=== PATIENT | male | born 1960 | race Caucasian/White ===

== ENCOUNTER 2018-02-25 02:55 | Inpatient (IN) | payer OTHER ==
[2018-02-25] MEDS ORDERED: NS 0.9% 1000 ML* 2,000 ML IV ONE (03:12)
[2018-02-25] MEDS ORDERED: Metoclopramide IV* 5 MG/ML 2 ML VIAL IV SLOW PU ONE (03:12)
[2018-02-25] MEDS ORDERED: Morphine INJ* 2 MG/ML 1 ML SYRINGE (TWO MG - NEW SYRINGE VERSION) IV ONE ×2 (03:13→05:12)
[2018-02-25 03:36] LABS: ABS Basophils 0 10^3/ul (0-0.2); ABS Eosinophils 0 10^3/ul (0-0.6); ABS Lymphocytes 0.9 10^3/ul (1.0-4.8); ABS Monocytes 1.1 10^3/ul (0-0.8); ABS Neutrophils 14.4 10^3/ul (1.5-7.7); ABS Nucleated RBC 0 10^3/ul; Eosinophil % 0 % (0-6); Hematocrit 45 % (42-52); Hemoglobin 15.2 g/dl (14.0-18.0); Lymphocyte % 5.5 % (25-47); Mean Corpuscular HGB Conc 34 g/dl (31-36); Mean Corpuscular Hemoglobin 29 pg (27-31); Mean Corpuscular Volume 87 fL (80-94); Mean Platelet Volume 7.5 um3 (7.4-10.4); Nucleated Red Blood Cells % 0; Platelet Count 231 10^3/ul (150-450); Red Blood Count 5.16 10^6/ul (4.00-5.40); Red Cell Distribution Width 14 % (10.5-15); White Blood Count 16.4 10^3/ul (3.5-10.8)
[2018-02-25 03:42] LABS: INR 1.4 (0.77-1.02)
--- NOTE | 2018-02-25 03:42 | ED ---
Abdominal Pain/Male - HPI Summary HPI Summary: A 57 y/o male accompanied by his presents to the ED c/o suprapubic abdominal pain/cramps reaching 8/10 in severity. Additionally c/o N/V/D. As per triage, "Pt stated that on Saturday evening, he started to have cramps in his stomach with N/V/D. Pt stated that yesterday he was in bed for most of the day Pt [place]. Pt stated that it hurts worse on right side than left side". According to the patient, he started experiencing severe abdominal cramps in the suprapubic region since last night after the [facility] fair. Additionally he felt dehydrated and "hot". He did drink some water, but that began on the onset of abdominal cramps. He noted that his diarrhea has subsided slightly, but has appetite changes, denies fever. No prior surgeries. Throughout the day he laid in bed with cramps to the point where it became unbearable. - History of Current Complaint Chief Complaint: EDNauseaVomitDiarrh Stated Complaint: ABD PAIN Time Seen by Provider: 02/25/18 03:04 Hx Obtained From: Patient Onset/Duration: Sudden Onset, Lasting Hours Timing: Constant Severity Initially: Severe Severity Currently: Severe Pain Intensity: 8 Pain Scale Used: 0-10 Numeric Location: Suprapubic Radiates: No Character: Cramping Aggravating Factor(s): Nothing Alleviating Factor(s): Nothing Associated Signs And Symptoms: Positive: Decreased Appetite, Nausea, Vomiting, Diarrhea - Allergies/Home Medications Allergies/Adverse Reactions: Allergies Allergy/AdvReac Type Severity Reaction Status Date / Time No Known Allergies Allergy Verified 02/25/18 03:00 PMH/Surg Hx/FS Hx/Imm Hx Endocrine/Hematology History: Denies: Hx Diabetes Cardiovascular History: Denies: Hx Hypertension Respiratory History: Denies: Hx Asthma - Surgical History Surgery Procedure, Year, and Place: As per patient, no prior surgeries noted. Infectious Disease History: No Infectious Disease History: Denies: Traveled Outside the [place] in Last 30 Days - Family History Known Family History: Positive: Other - PA Negative: Hypertension, Diabetes - Social History Alcohol Use: Occasionally Substance Use Type: Reports: None Smoking Status (MU): Never Smoked Tobacco Review of Systems Negative: Fever Positive: Abdominal Pain, Vomiting, Diarrhea, Nausea, Other - POSITIVE: Appetite changes All Other Systems Reviewed And Are Negative: Yes Physical Exam - Summary Physical Exam Summary: VITAL SIGNS: Reviewed. GENERAL: Patient is a well-developed and nourished male who is lying comfortable in the stretcher. Patient is not in any acute respiratory distress. HEAD AND FACE: No signs of trauma. No ecchymosis, hematomas or skull depressions. No sinus tenderness. EYES: PERRLA, EOMI x 2, No injected conjunctiva, no nystagmus. EARS: Hearing grossly intact. Ear canals and tympanic membranes are within normal limits. MOUTH: Oropharynx within normal limits. NECK: Supple, trachea is midline, no adenopathy, no JVD, no carotid bruit, no c- spine tenderness, neck with full ROM. CHEST: Symmetric, no tenderness at palpation LUNGS: Clear to auscultation bilaterally. No wheezing or crackles. CVS: Regular rate and rhythm, S1 and S2 present, no murmurs or gallops appreciated. ABDOMEN: Soft, RLQ tenderness. Abdomen is distended. No rebound, flank guarding , and no masses palpated. Bowel sounds are normal. EXTREMITIES: FROM in all major joints, no edema, no cyanosis or clubbing. NEURO: Alert and oriented x 3. No acute neurological deficits. Speech is normal and follows commands. SKIN: Dry and warm Triage Information Reviewed: Yes Vital Signs On Initial Exam: Initial Vitals Temp Pulse Resp BP Pulse Ox 98.3 F 129 20 131/76 98 02/25/18 02:56 02/25/18 02:56 02/25/18 02:56 02/25/18 02:56 02/25/18 02:56 Vital Signs Reviewed: Yes Diagnostics - Vital Signs Vital Signs Temp Pulse Resp BP Pulse Ox 02/25/18 02:56 98.3 F 129 20 131/76 98 - Laboratory Lab Results: Lab Results 02/25/18 Range/Units 03:16 WBC 16.4 H (3.5-10.8) 10^3/ul RBC 5.16 (4.00-5.40) 10^6/ul Hgb 15.2 (14.0-18.0) g/dl Hct 45 (42-52) % MCV 87 (80-94) fL MCH 29 (27-31) pg MCHC 34 (31-36) g/dl RDW 14 (10.5-15) % Plt Count 231 (150-450) 10^3/ul MPV 7.5 (7.4-10.4) um3 Neut % (Auto) 87.5 H (38-83) % Lymph % (Auto) 5.5 L (25-47) % [place] % (Auto) 6.7 (0-7) % Eos % (Auto) 0 (0-6) % Baso % (Auto) 0.3 (0-2) % Absolute Neuts (auto) 14.4 H (1.5-7.7) 10^3/ul Absolute Lymphs (auto) 0.9 L (1.0-4.8) 10^3/ul Absolute Monos (auto) 1.1 H (0-0.8) 10^3/ul Absolute Eos (auto) 0 (0-0.6) 10^3/ul Absolute Basos (auto) 0 (0-0.2) 10^3/ul Absolute Nucleated RBC 0 10^3/ul Nucleated RBC % 0 Result Diagrams: 02/25/18 03:16 02/25/18 03:16 Lab Statement: Any lab studies that have been ordered have been reviewed, and results considered in the medical decision making process. - CT CT A/P CT Interpretation Completed By: Radiologist - Moderate thickening of the ascending colon with surrounding inflammatory changes, perforation, and trace free air in the right abdomen and adjacent to the ascending colon (series 2 image 45) Findings represent inflammation, or infection, however, underlying mass cannot be completely excluded direct visualization after treatment is recommended. ED PHYSICIAN REVIEWED THIS RADIOLOGY REPORT. Abdominal Pain Fem Course/Dx - Course Course Of Treatment: A 57 y/o male accompanied by his presents to the ED c/ o suprapubic abdominal pain/cramps reaching 8/10 in severity. Additionally c/o N /V/D. A CT A/P revealed moderate thickening of the ascending colon with surrounding inflammatory changes, perforation, and trace free air in the right abdomen and adjacent to the ascending colon (series 2 image 45) Findings represent inflammation, or infection, however, underlying mass cannot be completely excluded direct visualization after treatment is recommended. In the ED course, the patient recieved Levaquin, Flagyl, Omnipaque, Morphine, Reglan and IV fluids. Patient care was discussed with Dr. Pressley who will consult with patient. After consulting with patient, Dr. Pressley accepted the patient for admission. Patient will be admitted with a diagnosis of colitis with perforation. Patient is agreeable with this plan. - Diagnoses Provider Diagnoses: Colitis - Provider Notifications Discussed Care Of Patient With: Mecca Pressley Time Discussed With Above Provider: 05:10 Instructed by Provider To: Other - Will consult with patient. At 0629, Dr. Pressley accepted for admission. Discharge - Sign-Out/Discharge Documenting (check all that apply): Patient Departure - ADMIT - Discharge Plan Condition: Stable Disposition: ADMITTED TO [facility] Referrals: Juan Antonio Calderón MD [Primary Care Provider] - - Attestation Statements Document Initiated by Scribe: Yes Documenting Scribe: Jevon Rose Provider For Whom Scribe is Documenting (Include Credential): Johnathon Larose Attestation: Jevon Soares, scribed for Jose Manuel Galindo on 02/25/18 at 0628.
[2018-02-25 03:51] LABS: EGFR Non-African American 63.5 (>60)
[2018-02-25] MEDS ORDERED: Iohexol 300* (CONTRAST) 10 ML SDV IV ONE (03:58)
[2018-02-25 05:03] LABS: Urine Appearance Clear; Urine Blood 1+ (Negative); Urine Color Straw; Urine Ketones Trace (Negative); Urine Protein Negative (Negative); Urine Red Blood Cell Trace(0-2/hpf) (Absent); Urine Specific Gravity 1.041 (1.010-1.030); Urine Urobilinogen Negative (Negative); Urine White Blood Cell Absent (Absent)
[2018-02-25] MEDS ORDERED: metroNIDAZOLE IV 500 MG/100ML* 500 MG/100 ML BAG IVPB ONE (05:03)
--- NOTE | 2018-02-25 05:03 | RAD ---
EXAM: CT Abdomen and Pelvis With Intravenous Contrast CLINICAL HISTORY: 57 years old, male; Pain; Abdominal pain; Localized; Right lower quadrant (rlq); Additional info: Abd pain TECHNIQUE: Axial computed tomography images of the abdomen and pelvis with intravenous contrast. All CT scans at this facility use at least one of these dose optimization techniques: automated exposure control; mA and/or kV adjustment per patient size (includes targeted exams where dose is matched to clinical indication); or iterative reconstruction. Coronal and sagittal reformatted images were created and reviewed. CONTRAST: 131 mL of OMNI administered intravenously. COMPARISON: No relevant prior studies available. FINDINGS: Lung bases: Bibasilar atelectasis. ABDOMEN: Liver: Diffuse fatty infiltration of liver. Gallbladder and bile ducts: Unremarkable. No calcified stones. No ductal dilation. Pancreas: Unremarkable. No mass. No ductal dilation. Spleen: Unremarkable. No splenomegaly. Adrenals: Unremarkable. No mass. Kidneys and ureters: Unremarkable. No solid mass. No hydronephrosis. Stomach and bowel: Moderate thickening of the ascending colon with surrounding inflammatory changes, perforation, and trace free air in the right abdomen and adjacent to the ascending colon (series 2 image 45) Findings represent inflammation, or infection, however, underlying mass cannot be completely excluded direct visualization after treatment is recommended. Nondistention versus mild thickening of the sigmoid colon and descending colon. Few scattered colonic diverticula. Transverse colon is unremarkable. Mild thickening and prominence of the fluid filled left small bowel loop may represent mild inflammation or ileus. PELVIS: Appendix: No findings to suggest acute appendicitis. Bladder: Mild hyperdensity in the urinary bladder may represent contrast. Reproductive: Prostate calcifications. ABDOMEN and PELVIS: Intraperitoneal space: Small free fluid or free air. Bones/joints: No acute fracture. No dislocation. Soft tissues: Unremarkable. Vasculature: Unremarkable. No abdominal aortic aneurysm. Lymph nodes: Multiple subcentimeter left para-aortic lymph nodes. These are not pathologically enlarged by CT criteria. Subcentimeter mesenteric lymph nodes, these are not pathologically enlarged by CT criteria. IMPRESSION: Moderate thickening of the ascending colon with surrounding inflammatory changes, perforation, and trace free air in the right abdomen and adjacent to the ascending colon (series 2 image 45) Findings represent inflammation, or infection, however, underlying mass cannot be completely excluded direct visualization after treatment is recommended. Critical findings: Findings discussed with Dr. STEVEN Winn date of interpretation on 02/25/18 at 4 AM.
[2018-02-25] MEDS ORDERED: Levofloxacin 500 MG IVPREMIX(* 500 MG/100 ML BAG IVPB ONE (05:04)
[2018-02-25] MEDS ORDERED: NS 0.9% 1000 ML* 1,000 ML IV ONE (05:04)
--- NOTE | 2018-02-25 06:51 | HP ---
H&P (Free Text) History and Physical: Surgery H & P Asked by Dr. Benito to evaluate a pt. with abdominal pain and a CT suggestive of microperforation of ascending colon. Mr. Cummings is a 57 y.o. male who reports he first felt some vague abdominal discomfort 2 days ago. He attributed this discomfort to dehydration, but when it worsened and persisted through yesterday , he decided to come to the ER. He describes the pain as "pinching". Yesterday he began to have some diarrhea and he vomited. He denies dysuria or fever. He did have some chills yesterday. He is not hungry. He had a similar pain a month or so ago, but it resolved. PMHx: denies Meds: none NKDA SH: neg. tob., occ EtOH, neg. IVDA ROS: neg. FH: denies PE: general: somewhat overweight male in NAD Vital Signs 02/25/18 02/25/18 02/25/18 02:56 04:36 04:50 Temperature 98.3 F Pulse Rate 129 Respiratory 20 16 36 Rate Blood Pressure 131/76 151/98 (mmHg) O2 Sat by Pulse 98 Oximetry 02/25/18 02/25/18 02/25/18 04:51 05:00 05:20 Temperature Pulse Rate Respiratory 28 36 32 Rate Blood Pressure 137/79 (mmHg) O2 Sat by Pulse Oximetry 02/25/18 02/25/18 02/25/18 05:39 05:50 06:00 Temperature Pulse Rate Respiratory 16 33 30 Rate Blood Pressure 145/92 (mmHg) O2 Sat by Pulse Oximetry HEENT: anicteric sclerae, dry oral mucosa, neg. cervical adenopathy lungs: clear to ausc. heart: reg., tachy abd: distended, diminished BS, tympanic in upper abd., soft, tender in RUQ; right mid-abd., RLQ; no guarding or rebound. Neg. CVAT ext: neg. cyanosis, edema Laboratory Results - last 24 hr 02/25/18 02/25/18 02/25/18 03:16 03:16 03:16 WBC 16.4 H RBC 5.16 Hgb 15.2 Hct 45 MCV 87 MCH 29 MCHC 34 RDW 14 Plt Count 231 MPV 7.5 Neut % (Auto) 87.5 H Lymph % (Auto) 5.5 L Davidson % (Auto) 6.7 Eos % (Auto) 0 Baso % (Auto) 0.3 Absolute Neuts (auto) 14.4 H Absolute Lymphs (auto) 0.9 L Absolute Monos (auto) 1.1 H Absolute Eos (auto) 0 Absolute Basos (auto) 0 Absolute Nucleated RBC 0 Nucleated RBC % 0 INR (Anticoag Therapy) 1.40 H APTT 33.6 Sodium 135 Potassium 3.6 Chloride 101 Carbon Dioxide 25 Anion Gap 9 BUN 13 Creatinine 1.19 H Est GFR ( Amer) 76.8 Est GFR (Non-Af Amer) 63.5 BUN/Creatinine Ratio 10.9 Glucose 133 H Lactic Acid Calcium 8.8 Magnesium 1.5 L Total Bilirubin 1.00 AST 15 ALT 19 Alkaline Phosphatase 41 Total Creatine Kinase 98 C-Reactive Protein 109.98 H Total Protein 7.0 Albumin 4.1 Globulin 2.9 Albumin/Globulin Ratio 1.4 Amylase 32 Lipase 11 Urine Color Urine Appearance Urine pH Ur Specific Comfort Urine Protein Urine Ketones Urine Blood Urine Nitrate Urine Bilirubin Urine Urobilinogen Ur Leukocyte Esterase Urine WBC (Auto) Urine RBC (Auto) Ur Squamous Epith Cells Urine Bacteria Urine Glucose 02/25/18 02/25/18 02/25/18 03:16 04:45 05:15 WBC RBC Hgb Hct MCV MCH MCHC RDW Plt Count MPV Neut % (Auto) Lymph % (Auto) Davidson % (Auto) Eos % (Auto) Baso % (Auto) Absolute Neuts (auto) Absolute Lymphs (auto) Absolute Monos (auto) Absolute Eos (auto) Absolute Basos (auto) Absolute Nucleated RBC Nucleated RBC % INR (Anticoag Therapy) APTT Sodium Potassium Chloride Carbon Dioxide Anion Gap BUN Creatinine Est GFR ( Amer) Est GFR (Non-Af Amer) BUN/Creatinine Ratio Glucose Lactic Acid 1.1 1.2 Calcium Magnesium Total Bilirubin AST ALT Alkaline Phosphatase Total Creatine Kinase C-Reactive Protein Total Protein Albumin Globulin Albumin/Globulin Ratio Amylase Lipase Urine Color Straw Urine Appearance Clear Urine pH 6.0 Ur Specific Comfort 1.041 H Urine Protein Negative Urine Ketones Trace A Urine Blood 1+ A Urine Nitrate Negative Urine Bilirubin Negative Urine Urobilinogen Negative Ur Leukocyte Esterase Negative Urine WBC (Auto) Absent Urine RBC (Auto) Trace(0-2/hpf) Ur Squamous Epith Cells Present A Urine Bacteria Absent Urine Glucose Negative A/P: 57 y.o. male with evidence on CT of microperforation of right colon. Will admit, keep NPO, hydrate, and continue abx started in ER; will repeat labs in AM. Jennifer
[2018-02-25] MEDS ORDERED: Ondansetron INJ* 2 MG/ML VIAL IV PRN ×2 (06:57→17:52)
[2018-02-25] MEDS: Morphine INJ* 2 MG/ML 1 ML SYRINGE (TWO MG - NEW SYRINGE VERSION) IV PRN ×3 (07:11→14:43)
[2018-02-25] MEDS: metroNIDAZOLE IV 500 MG/100ML* 500 MG/100 ML BAG IVPB SCH ×2 (13:00→23:05)
[2018-02-25] MEDS: D5W 1/2 NS KCl 20 Meq 1000 ML* 1,000 ML IV SCH ×2 (13:06→23:05)
[2018-02-25] MEDS ORDERED: fentaNYL* 50 MCG/ML 5 ML VIAL (250 MCG VIAL) ONE (15:54)
[2018-02-25] MEDS ORDERED: Rocuronium* 10 MG/ML VIAL ONE (15:54)
[2018-02-25] MEDS ORDERED: Midazolam* 1 MG/ML 2 ML VIAL (2 MG) ONE (15:54)
[2018-02-25] MEDS ORDERED: Propofol* 10 MG/ML 20 ML BTL IV PUSH ONE (15:55)
[2018-02-25] MEDS ORDERED: Etomidate* 2 MG/ML 10 ML VIAL ONE (15:56)
[2018-02-25] MEDS ORDERED: Bupivacaine 0.25% W/EPI* 10 ML SDV ONE (15:57)
[2018-02-25] MEDS ORDERED: ceFOXitin 2 GM IVPREMIX* 2 GM/50 ML BAG ONE (16:15)
[2018-02-25] MEDS ORDERED: HYDROmorphone INJ1* 1 MG/ML SYRINGE ONE ×2 (17:14→17:38)
[2018-02-25] MEDS ORDERED: fentaNYL* 50 MCG/ML 2 ML VIAL (100 MCG VIAL) IV PRN (17:52)
[2018-02-25] MEDS ORDERED: Ketorolac INJ* 30 MG/ML 1 ML VIAL IV PRN (17:52)
[2018-02-25] MEDS ORDERED: HYDROmorphone INJ* 1 MG/ML CARPUJECT SYRINGE IV PRN (17:52)
[2018-02-25] MEDS ORDERED: DiMENhydriNATE IV* 50 MG/ML VIAL IV PUSH PRN (17:52)
[2018-02-25] MEDS ORDERED: Acetaminophen IV 1GM/100ML * 1,000 MG/100 ML VIAL IVPB ONE (17:52)
[2018-02-25] MEDS ORDERED: Naloxone* 0.4 MG/ML 1 ML VIAL IV PRN (17:52)
[2018-02-25] MEDS ORDERED: PROCHLORPERAZINE INJ 5 MG/ML 2 ML VIAL IV PRN (17:52)
[2018-02-25] MEDS ORDERED: Mivacurium Chloride* 20 MG/10 ML VIAL IV ONE (18:28)
[2018-02-25] MEDS ORDERED: Glycopyrrolate IV* 0.2 MG/ML 1 ML VIAL ONE (18:40)
[2018-02-25] MEDS ORDERED: Neostigmine Methylsulfate* 1 MG/ML 10 ML VIAL (1 mg/ml) ONE (18:40)
[2018-02-25] MEDS ORDERED: fentaNYL* 50 MCG/ML 2 ML VIAL (100 MCG VIAL) ONE (19:30)
[2018-02-25] MEDS ORDERED: Acetaminophen IV 1GM/100ML * 100 ML ONE (19:41)
[2018-02-25] MEDS ORDERED: Phenylephrine INJ* 50 MG in NS 0.9% 250 ML* 245 ML IV PRN (20:00)
[2018-02-25] MEDS ORDERED: Albumin Human 5%* 12.5 GM/250 ML BTL IV ONE ×2 (20:00→20:43)
[2018-02-25] MEDS ORDERED: Phenylephrine INJ* 10 MG/ML 1 ML VIAL (10 MG) ONE (20:02)
[2018-02-25] MEDS ORDERED: Ketorolac INJ* 30 MG/ML 1 ML VIAL ONE (21:54)
[2018-02-25] MEDS ORDERED: Acetaminophen TAB* 325 MG PO PRN (22:21)
[2018-02-25] MEDS ORDERED: NS 0.9% 1000 ML* 1,000 ML IVPB SCH (22:40)
[2018-02-25] MEDS ORDERED: Naloxone* 0.4 MG/ML 1 ML VIAL IV PUSH PRN (22:40)
[2018-02-25] MEDS ORDERED: HYDROmorphone PCA* 20 MG/20 ML PCA.SYRING PCA SCH (23:00)
--- NOTE | 2018-02-26 00:55 | OP ---
CC: Dr. Calderón * DATE OF OPERATION: 02/25/18 - ROOM #331 DATE OF : 64 SURGEON: Bolivar Erickson MD CASINO FLOORPERSON: Stephanie Chester NP ANESTHESIOLOGIST: Dr. De Santiago. ANESTHESIA: General anesthetic. PRE-OP DIAGNOSIS: Peritonitis, possible colon perforation. POST-OP DIAGNOSIS: Colon perforation. OPERATIVE PROCEDURE: Laparoscopy converted to laparotomy with right ileocolectomy. DESCRIPTION OF PROCEDURE: The patient was supine on the operating room table. After adequate general anesthetic, compression stockings, Gail Hugger warmer, and intravenous antibiotics, the patient abdomen was clipped and prepped with antiseptic, draped in a sterile fashion. Local infiltrative anesthesia was administered. A small umbilical incision was created, blunt port cannula was placed. Two additional cannulae, left lower quadrant and left mid abdomen was placed through small stab wounds under direct vision. There was cloudy fluid throughout the peritoneum and some purulent exudate on numerous loops of small bowel. A trap was used to suction out some of the purulent fluid from the pelvis and this was sent to the laboratory. Inspection revealed normal appendix. The cecum was relatively normal, but up by the distal ascending colon or just proximal to the hepatic flexure was an area of apparent perforation with a lot of inflammatory change and fibrinous exudate and the omentum was adherent down onto the colon. It was decided that this will be converted to laparotomy, so laparotomy was carried out in a usual fashion. Exploration of the abdominal cavity identified normal small bowel, normal transverse colon, normal cecum, and normal appendix. The upper ascending colon was the site of the inflammation. It was felt the resection of this area was the only feasible approach, so the omentum was taken down off the transverse colon and partially divided using the LigaSure device, thus exposing the entirety of the hepatic flexure. The whole right colon was mobilized. The duodenum was identified and kept out of harm's way. The transverse colon was divided using a HAI 80 stapler, and the mesentery was sequentially ligated and cut with the Liga-Sure device and the ileum was divided using a HAI stapler as well. Specimen was passed off for pathologic evaluation. The cecum was opened to examine inside and there was concern that this could represent a malignancy, but this was inconclusive. It was then sent in formalin for pathologic evaluation. The anastomosis is created using a HAI-80 stapler. The crotch of the anastomosis was reinforced with silk suture. The enterotomy was closed using a TA-60 stapler and the staple line is inverted using silk Lembert sutures. The mesentery is closed with 3-0 Vicryl. Everything appears to be in good condition. Gown and gloves are changed. The bowel was well perfused. The operative field is well irrigated with warm saline solution. Free fluid was suctioned out. Irrigation is carried out in all 4 quadrants and no undrained collections can be identified. The bowel was returned to natural position with the omentum over top and closure of the fascia carried out using running #1 Vicryl. The adipose is well irrigated and loosely approximated using surgical clips. The areas are left open for drainage. Sterile dressing is placed. He was awakened, extubated, and brought to recovery in stable condition. There are no complications, no drains. Pathologic specimen is right ileocolectomy. Sponge and instrument counts correct. Estimated blood loss 250 mL. [id number]/[facility] #: [id number] JOLENE
[2018-02-26] MEDS: D5W 1/2 NS KCl 20 Meq 1000 ML* 1,000 ML IV SCH (03:15)
[2018-02-26] MEDS: metroNIDAZOLE IV 500 MG/100ML* 500 MG/100 ML BAG IVPB SCH ×3 (05:45→21:20)
[2018-02-26 06:32] LABS: ABS Basophils 0 10^3/ul (0-0.2); ABS Eosinophils 0 10^3/ul (0-0.6); ABS Lymphocytes 0.4 10^3/ul (1.0-4.8); ABS Monocytes 0.6 10^3/ul (0-0.8); ABS Neutrophils 7.6 10^3/ul (1.5-7.7); ABS Nucleated RBC 0 10^3/ul; Eosinophil % 0 % (0-6); Hematocrit 36 % (42-52); Hemoglobin 12.1 g/dl (14.0-18.0); Lymphocyte % 4.3 % (25-47); Mean Corpuscular HGB Conc 34 g/dl (31-36); Mean Corpuscular Hemoglobin 30 pg (27-31); Mean Corpuscular Volume 87 fL (80-94); Mean Platelet Volume 7.4 um3 (7.4-10.4); Nucleated Red Blood Cells % 0; Platelet Count 164 10^3/ul (150-450); Red Cell Distribution Width 14 % (10.5-15); White Blood Count 8.6 10^3/ul (3.5-10.8)
[2018-02-26 06:48] LABS: EGFR Non-African American 78.5 (>60)
[2018-02-26] MEDS: Levofloxacin 500 MG IVPREMIX(* 500 MG/100 ML BAG IVPB SCH (07:41)
--- NOTE | 2018-02-26 08:13 | PN ---
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
[2018-02-26] MEDS: oxyCODONE/Acetamin 5/325 MG* TAB PO PRN ×4 (08:54→21:20)
[2018-02-26] MEDS: Enoxaparin(*) 40 MG/0.4 ML SYR SUBCUT SCH (08:55)
[2018-02-27] MEDS: oxyCODONE/Acetamin 5/325 MG* TAB PO PRN ×5 (04:44→22:36)
[2018-02-27] MEDS: metroNIDAZOLE IV 500 MG/100ML* 500 MG/100 ML BAG IVPB SCH ×3 (05:37→22:31)
[2018-02-27] MEDS: Levofloxacin 500 MG IVPREMIX(* 500 MG/100 ML BAG IVPB SCH (07:36)
[2018-02-27] MEDS: Enoxaparin(*) 40 MG/0.4 ML SYR SUBCUT SCH (09:07)
--- NOTE | 2018-02-27 10:20 | PN ---
Progress Note - Progress Note Date of Service: 02/27/18 Note: Surgery Progress: S: POD #2. Pain controlled w/ Percocet. Feels some rumbling, but no flatus or BM yet. Nino clear liqs; would like to advance. Denies SOB. Ambulating. O: Vital Signs - 8 hr 02/27/18 02/27/18 02/27/18 03:04 04:44 07:29 Temperature 99.8 F Pulse Rate 103 Respiratory 16 18 18 Rate Blood Pressure 136/81 (mmHg) O2 Sat by Pulse 94 Oximetry 02/27/18 02/27/18 02/27/18 07:31 07:46 09:07 Temperature 99.1 F Pulse Rate 101 Respiratory 17 17 18 Rate Blood Pressure 147/83 (mmHg) O2 Sat by Pulse 91 91 Oximetry Intake and Output Last 24 Hours 02/25/18 02/26/18 02/27/18 02/28/18 06:59 06:59 06:59 06:59 Intake Total 39755 2417 255 Output Total 900 2425 Balance 9477 -8 255 Weight 215 lb 215 lb Intake: IV Fluids 8919 967 50 ALBUMIN 500 D5W 1/2 NS 20 meq KCL 913 752 LR 4100 NS (0.9%) 3 50 NS 100ML, Cefoxitin 2G 100 IVPB 318 100 ABX - FLAGYL 212 100 D5W 1/2 NS 20 meq KCL 106 Medicated IV 105 Levaquin 105 Oral 1140 1450 Output: Urine 900 2425 Other: Estimated Void Medium # Bowel Movements 0 0 # Voids 3 Heart: reg; mildly tachy Lungs: clear ant; decreased BS at both bases R> L Abd: mildly distended; no sig tympany; BS+; soft; mild incisional and RLQ tenderness. Incision clean; no erythema; small to mod amts of serosang drainage on dsg; wound gaps probed w/ sterile Qtip; small amt of add'l sang drainage from inferior wound. DSDs replaced. No labs today. A: s/p R colectomy for perf (path pend) w/ gradual improvement; likely some atelectasis P: will advance to full liqs; encourage IS use and ambulation
[2018-02-28] MEDS: metroNIDAZOLE IV 500 MG/100ML* 500 MG/100 ML BAG IVPB SCH ×3 (05:26→21:30)
[2018-02-28] MEDS: oxyCODONE/Acetamin 5/325 MG* TAB PO PRN ×3 (06:54→21:29)
--- NOTE | 2018-02-28 07:51 | PN ---
Progress Note - Progress Note Date of Service: 02/28/18 Note: POD#3 s/p perf colon ca T99, VS noted Voiding well, I<O Glroy po's, no N/V, hungry Passed stool and flatus Pain control goo on oral meds Alert and coherent Breathin unlabored Abd soft, min tender, no infection, wound probed, drsg changed, +BS Extr no edema Impr: S/P contained perf of colon Ca Disc path with pt & Oncology consult Reg diet Disch home later today if glory po's Home on Augmentin
[2018-02-28] MEDS: Levofloxacin 500 MG IVPREMIX(* 500 MG/100 ML BAG IVPB SCH (08:59)
[2018-02-28] MEDS: Enoxaparin(*) 40 MG/0.4 ML SYR SUBCUT SCH (08:59)
--- NOTE | 2018-02-28 09:56 | DS ---
CC: Dr. Erickson; Dr. Calderón; Dr. Denson * DISCHARGE SUMMARY: DATE OF ADMISSION: 02/25/18 DATE OF DISCHARGE: 02/28/18 PRINCIPAL ADMITTING DIAGNOSIS: Bowel perforation. OPERATIVE PROCEDURE ON THIS ADMISSION: Laparotomy with resection of portion of colon. HOSPITAL COURSE: The patient is a 57-year-old male who presented to the hospital with abdominal pain and was found to have contained perforation of the right colon. He was put on antibiotics and resuscitated with IV fluids and taken to the operating room where he underwent a right hemicolectomy. This proved to be a perforated colon cancer. His postoperative course was uneventful. He had a gradual return in bowel function and appetite and ambulation. His pain control was good. His wound was healing nicely. He was not showing any signs of infection. He will be seen in consultation by Dr. Denson for oncology and will be discharged home on oral antibiotics and will follow up in the office. He will be discharged with instructions sheet and understands how to take care of the incision at home. [id number]/[facility] #: [id number] JOLENE
[2018-03-01 03:13] VITALS: BP 149/90
[2018-03-01] MEDS: oxyCODONE/Acetamin 5/325 MG* TAB PO PRN ×2 (03:14→07:41)
[2018-03-01] MEDS: metroNIDAZOLE IV 500 MG/100ML* 500 MG/100 ML BAG IVPB SCH (05:33)
[2018-03-01] MEDS: Enoxaparin(*) 40 MG/0.4 ML SYR SUBCUT SCH (07:40)
[2018-03-01] MEDS: Levofloxacin 500 MG IVPREMIX(* 500 MG/100 ML BAG IVPB SCH (07:40)
--- NOTE | 2018-03-01 08:48 | PN ---
Progress Note - Progress Note Date of Service: 03/01/18 SOAP: Subjective: He feels much better today-had BM, tolerating po and pain controlled He is ready to go home Objective: Temp Pulse Resp BP Pulse Ox 98.8 F 84 18 149/90 98 03/01/18 03:13 03/01/18 03:13 03/01/18 07:41 03/01/18 03:13 03/01/18 03:13 Intake & Output 02/27/18 02/28/18 03/01/18 03/02/18 06:59 06:59 06:59 06:59 Intake Total 2417 1345 1399 Output Total 2425 1825 2900 Balance -8 -267 -3279 Intake: IV Fluids 967 70 360 D5W 1/2 NS 20 meq KCL 752 NS (0.9%) 70 30 IVPB 205 109 ABX - FLAGYL 205 109 Medicated IV 105 Levaquin 105 Oral 1450 965 930 Output: Urine 2425 1825 2900 Other: Estimated Void Medium Date of Last Bowel 02/27/18 Movement # Bowel Movements 0 1 Estimated Stool Amount Small Medium # Voids 3 PEX: Comfortable Lungs are clear Abd is soft and non-distended. Incision is CDI. Bowel sounds are present and are normoactive. Ext without edema Assessment: POD#4 s/p right colectomy-right colon cancer Ileus resolved Cultures reviewed. Plan: D/C home today Outpatient follow up PO antibiotics
== END 2018-03-01 11:04 | disposition home or self-care (01) | DRG 329 ==
LOC: ED 02:55 → SSU 07:27 → OBSVTOIN 02-27 11:00
PROVIDERS: ADMIT Surgery; ATTEND Surgery
PROC: 0DBB0ZZ Excision of Ileum, Open Approach (ICD-10-PCS; 2018-02-25)
PROC: 0DBK0ZZ Excision of Ascending Colon, Open Approach (ICD-10-PCS; principal; 2018-02-25 16:30)
DX: C18.2 Malignant neoplasm of ascending colon (principal); K63.1 Perforation of intestine (nontraumatic); K56.7 Ileus, unspecified; E86.0 Dehydration; Z82.49 Family history of ischemic heart disease and other diseases of the circulatory system; Z72.89 Other problems related to lifestyle
CPT/HCPCS: 36415; 74177; 80048; 80053; 81003; 81015; 81210; 81275; 81403; 81404; 82150; 82378; 82550; 83605; 83690; 83735; 85025; 85610; 85730; 86140; 87070; 87073; 87076; 87205; 88309; 88341; 88342; 88381; 99223; 99284; A9270-GY; C1776; G0378; J0694; J1170; J1650; J1885; J1956; J2250; J2270; J2704; J2710; J2765; J3010; J3490; P9045; Q9967

== ENCOUNTER 2018-03-27 11:01 | Day surgery (SDC) | payer OTHER ==
[~2018-03-27 11:01] MED LIST: Buffered Lidocaine 0.9% SYRIN* 5 ML/SYR SYRINGE INTRADERM ONE; Famotidine IV* 10 MG/ML 2 ML (20 mg) IV ONE
[2018-03-27] MEDS ORDERED: Famotidine IV* 10 MG/ML 2 ML (20 mg) ONE (11:45)
[2018-03-27] MEDS ORDERED: Buffered Lidocaine 0.9% SYRIN* 5 ML/SYR SYRINGE ONE (11:45)
[2018-03-27] MEDS ORDERED: ceFAZolin 2 GM in NS PREMIX(*) 2 GM/100 ML BAG IVPB ONE (11:45)
[2018-03-27] MEDS ORDERED: Lidocaine 2% PF * 5 ML VIAL ONE (12:48)
[2018-03-27] MEDS ORDERED: Midazolam* 1 MG/ML 5 ML VIAL (5 MG) ONE (12:48)
[2018-03-27] MEDS ORDERED: fentaNYL* 50 MCG/ML 2 ML VIAL (100 MCG VIAL) ONE (12:48)
[2018-03-27] MEDS ORDERED: Propofol* 10 MG/ML 20 ML BTL IV PUSH ONE (12:48)
[2018-03-27] MEDS ORDERED: Lidocaine 1% INJ* 10 MG/ML 30 ML SDV ONE (13:17)
[2018-03-27] MEDS ORDERED: Ondansetron INJ* 2 MG/ML VIAL ONE (13:41)
[2018-03-27] MEDS ORDERED: Ketorolac INJ* 30 MG/ML 1 ML VIAL ONE (13:41)
[2018-03-27] MEDS ORDERED: DiMENhydriNATE IV* 50 MG/ML VIAL IV PUSH PRN (14:09)
[2018-03-27] MEDS ORDERED: Naloxone* 0.4 MG/ML 1 ML VIAL IV PRN (14:09)
[2018-03-27] MEDS ORDERED: Acetaminophen TAB* 325 MG PO PRN (14:09)
--- NOTE | 2018-03-27 15:05 | RAD ---
HISTORY: POWERPORT PLACEMENT COMPARISONS: None VIEWS: 1: frontal AP view of the chest at 2:43 PM FINDINGS: LINES AND TUBES: A right-sided chest port is noted with the tip overlying the superior vena cava. CARDIOMEDIASTINAL SILHOUETTE: The cardiomediastinal silhouette is normal for portable technique. PLEURA: The costophrenic angles are sharp. No pleural abnormalities are noted. There is no appreciable pneumothorax. LUNG PARENCHYMA: The lungs are clear. ABDOMEN: The upper abdomen is clear. There is no subphrenic gas. BONES AND SOFT TISSUES: No bone or soft tissue abnormalities are noted. IMPRESSION: NO ACTIVE CARDIOPULMONARY DISEASE.
[2018-03-27 15:06] VITALS: BP 120/91
--- NOTE | 2018-03-27 15:39 | RAD ---
INDICATION: chest port placement COMPARISONS: None relevant TECHNIQUE: Fluoroscopy was provided for a vascular access procedure. Total fluoroscopy time is: 8.4 seconds FINDINGS: Spot images demonstrate a right subclavian chest port with the tip overlying the cavoatrial junction. IMPRESSION: FLUOROSCOPY WAS PROVIDED FOR A VASCULAR ACCESS PROCEDURE CPT II Codes: G9500
--- NOTE | 2018-03-28 05:17 | OP ---
CC: Dr. Denson; Dr. Calderón * DATE OF OPERATION: 03/27/18 - [facility] DATE OF : 64 SURGEON: Bolivar Erickson MD PRACTICING MD ANESTHESIOLOGIST: None. ANESTHESIOLOGIST: Dr. Prado. ANESTHESIA: LMAC anesthesia. PRE-OP DIAGNOSIS: Carcinoma of the colon. POST-OP DIAGNOSIS: Carcinoma of the colon. OPERATIVE PROCEDURE: Placement of right subclavian 8-[employer]. DESCRIPTION OF PROCEDURE: The patient was supine on the operative table. After adequate intravenous sedation, compression stockings, Gail Hugger warmer, and intravenous antibiotics, the right chest and neck region were prepped with antiseptic, draped in a sterile fashion. Local infiltrative anesthesia was administered and approximately 3 cm subclavian incision was created and inferior pocket was created. Subclavian venipuncture was carried out, guidewire passed under fluoroscopic guidance. The catheter was passed through the Peel-Away introducer and delivered into the SVC. It was measured and cut at 27 cm, attached to the port, which was sutured in the pocket with 2-0 Prolene. The pocket was closed with 3-0 and 5-0 Vicryl followed by Steri- strips. The port has good blood return and flushed with saline, and heparinized solution. He tolerated the procedure well, was awakened and brought to recovery in good condition. No complications. No drains. No pathologic specimen. Sponge and instrument count is correct. Estimated blood loss is 10 mL. [id number]/CPS #: [id number]
== END 2018-03-27 15:08 | disposition home or self-care (01) ==
LOC: OR 11:01
PROVIDERS: ATTEND Surgery
DX: C18.9 Malignant neoplasm of colon, unspecified (principal); M19.131 Post-traumatic osteoarthritis, right wrist; S52.501S Unspecified fracture of the lower end of right radius, sequela; F17.210 Nicotine dependence, cigarettes, uncomplicated
CPT/HCPCS: 71045; 76000; C1788; J0690; J1642; J1885; J2250; J2405; J2704; J3010

== ENCOUNTER 2020-01-18 00:42 | Inpatient (IN) ==
[2020-01-18] MEDS ORDERED: NS 0.9% 1000 ml BAG 1,000 ML IV ONE (01:39)
[2020-01-18] MEDS ORDERED: Ondansetron 4 mg VIAL 2 MG/ML 2 ml VIAL IV ONE (01:39)
[2020-01-18 02:46] LABS: ABS Lymphocytes 0.9 10^3/ul (1.0-4.8); ABS Monocytes 0.5 10^3/ul (0-0.8); Eosinophil % 0.1 %; Hematocrit 44 % (42-52); Hemoglobin 15.6 g/dL (14.0-18.0); Lymphocyte % 10.4 %; Mean Corpuscular HGB Conc 35 g/dL (31-36); Mean Corpuscular Hemoglobin 30 pg (27-31); Mean Corpuscular Volume 87 fL (80-94); Mean Platelet Volume 7.6 fL (7.4-10.4); Platelet Count 194 10^3/uL (150-450); Red Blood Count 5.12 10^6 /uL (4.18-5.48); Red Cell Distribution Width 14 % (10-15); White Blood Count 8.4 10^3/uL (3.5-10.8)
[2020-01-18 02:58] LABS: Albumin 4.7 g/dL (3.2-5.2); Albumin/Globulin Ratio 1.6 (1-3); BUN/Creatinine Ratio 16.8 (8-20); C Reactive Protein 3.04 mg/L (<8.01); Calcium 9.6 mg/dL (8.6-10.3); EGFR African American 80.9 (>60); EGFR Non-African American 66.9 (>60); Potassium 3.7 mmol/L (3.5-5.0); Total Bilirubin 0.6 mg/dL (0.2-1.0); Total Protein 7.7 g/dL (6.4-8.9)
[2020-01-18] MEDS ORDERED: Iohexol 300 (CONTRAST) 10 ML SDV IV ONE (03:26)
[2020-01-18 04:56] LABS: Urine Appearance Cloudy; Urine Bilirubin Negative (Negative); Urine Blood Negative (Negative); Urine Color Yellow; Urine Glucose Negative (Negative); Urine Ketones 1+ (Negative); Urine Nitrite Negative (Negative); Urine Protein Negative (Negative); Urine Specific Gravity 1.036 (1.010-1.030); Urine Urobilinogen Negative (Negative)
[2020-01-18] MEDS: NS 0.9% 1000 ml BAG 2,000 ML IV ONE (06:46)
[2020-01-18] MEDS ORDERED: HYDROmorphone 0.5 MG/0.5 ML SYRINGE IV SLOW PU PRN (09:03)
[2020-01-18] MEDS ORDERED: Ondansetron 4 mg VIAL 2 MG/ML 2 ml VIAL IV PRN (09:03)
[2020-01-18] MEDS: Lactated Ringers 1000 ml BAG 1,000 ML IV SCH ×2 (11:40→19:52)
[2020-01-19] MEDS: Lactated Ringers 1000 ml BAG 1,000 ML IV SCH ×3 (04:00→20:17)
[2020-01-19 07:51] LABS: ABS Monocytes 0.6 10^3/ul (0-0.8); ABS Neutrophils 5.5 10^3/ul (1.5-7.7); Eosinophil % 0.5 %; Hematocrit 40 % (42-52); Hemoglobin 13.9 g/dL (14.0-18.0); Lymphocyte % 14.3 %; Mean Corpuscular HGB Conc 35 g/dL (31-36); Mean Corpuscular Hemoglobin 30 pg (27-31); Mean Corpuscular Volume 87 fL (80-94); Mean Platelet Volume 7.4 fL (7.4-10.4); Platelet Count 193 10^3/uL (150-450); Red Cell Distribution Width 14 % (10-15); White Blood Count 7.2 10^3/uL (3.5-10.8)
[2020-01-19 08:06] LABS: BUN/Creatinine Ratio 10.5 (8-20); Calcium 8.2 mg/dL (8.6-10.3); EGFR African American 110.9 (>60); EGFR Non-African American 91.7 (>60); Magnesium 1.7 mg/dL (1.9-2.7); Phosphorus 2.9 mg/dL (2.5-5.0); Potassium 3.1 mmol/L (3.5-5.0)
[2020-01-19] MEDS: Enoxaparin 40 MG/0.4 ML SYR SUBCUT SCH (08:34)
[2020-01-19] MEDS ORDERED: Magnesium Sulfate 2 gm BAG 2 GM/50 ML BAG IVPB ONE (12:00)
[2020-01-19] MEDS: KCL 10 MEQ/50 ML IVPREMIX 10 MEQ/50 ML BAG IV SCH ×4 (13:24→22:11)
[2020-01-19] MEDS ORDERED: KCL premix 10MEQ/50 ML x 1 TIME IV ONE (22:00)
[2020-01-20] MEDS: Lactated Ringers 1000 ml BAG 1,000 ML IV SCH (04:11)
[2020-01-20 06:30] LABS: Calcium 8.1 mg/dL (8.6-10.3); EGFR African American 105.2 (>60); Potassium 3.7 mmol/L (3.5-5.0)
[2020-01-20] MEDS: Enoxaparin 40 MG/0.4 ML SYR SUBCUT SCH (08:45)
[2020-01-20 12:11] VITALS: BP 134/90
== END 2020-01-20 15:10 | disposition home or self-care (01) | DRG 390 ==
LOC: ED 00:42 → SSU 09:03
PROVIDERS: ADMIT Internal Medicine; ATTEND Surgery Surgical Critical Care

== ENCOUNTER 2020-03-14 10:22 | Observation (INO) ==
[~2020-03-14 10:22] MED LIST changes: -Buffered Lidocaine 0.9% SYRIN* 5 ML/SYR SYRINGE INTRADERM ONE; -Famotidine IV* 10 MG/ML 2 ML (20 mg) IV ONE; +NS 0.9% IV SCH; +ONDANSETRON IV SCH
[2020-03-14] MEDS ORDERED: Morphine 2 MG/ML SYRINGE IV PRN (11:19)
[2020-03-14] MEDS ORDERED: Ondansetron 4 mg VIAL 2 MG/ML 2 ml VIAL IV PRN (11:19)
[2020-03-14] MEDS: NS 0.9% 1000 ml BAG 1,000 ML IV SCH (13:14)
[2020-03-14] MEDS: Metoclopramide 5 MG/ML VIAL (10 mg) IV SCH ×2 (13:26→18:56)
[2020-03-14 13:45] LABS: ABS Lymphocytes 0.5 10^3/ul (1.0-4.8); ABS Monocytes 0.4 10^3/ul (0-0.8); ABS Neutrophils 7.8 10^3/ul (1.5-7.7); Eosinophil % 0.1 %; Hematocrit 44 % (42-52); Hemoglobin 14.8 g/dL (14.0-18.0); Lymphocyte % 5.9 %; Mean Corpuscular HGB Conc 34 g/dL (31-36); Mean Corpuscular Hemoglobin 30 pg (27-31); Mean Corpuscular Volume 88 fL (80-94); Mean Platelet Volume 7.5 fL (7.4-10.4); Platelet Count 224 10^3/uL (150-450); Red Blood Count 5.04 10^6 /uL (4.18-5.48); Red Cell Distribution Width 14 % (10-15); White Blood Count 8.8 10^3/uL (3.5-10.8)
[2020-03-14 14:05] LABS: Albumin 4.2 g/dL (3.2-5.2); Albumin/Globulin Ratio 1.6 (1-3); BUN/Creatinine Ratio 15.9 (8-20); Calcium 8.9 mg/dL (8.6-10.3); EGFR Non-African American 89.3 (>60); Globulin 2.6 g/dL (2-4); Potassium 4.1 mmol/L (3.5-5.0); Total Bilirubin 0.5 mg/dL (0.2-1.0); Total Protein 6.8 g/dL (6.4-8.9)
[2020-03-14] MEDS ORDERED: Gadoxetate (CONTRAST) 181.43 MG/ML 10 ML SDV IV ONE (21:13)
[2020-03-15] MEDS: Metoclopramide 5 MG/ML VIAL (10 mg) IV SCH ×3 (00:19→12:11)
[2020-03-15] MEDS: NS 0.9% 1000 ml BAG 1,000 ML IV SCH (01:08)
[2020-03-15] MEDS ORDERED: Influenza VAC *QUAD* 2020-21* 0.5 ML SYRINGE IM ONE (09:00)
[2020-03-15 11:19] VITALS: BP 133/81
== END 2020-03-15 14:05 | disposition home or self-care (01) ==
LOC: SSU 10:22 → CHOAEAST 10:22
PROVIDERS: ADMIT Registered Nurse Oncology; ATTEND Internal Medicine Hematology & Oncology

== ENCOUNTER 2020-05-11 12:18 | Inpatient (IN) ==
[2020-05-11] MEDS ORDERED: Ondansetron 4 mg VIAL 2 MG/ML 2 ml VIAL IV ONE (12:49)
[2020-05-11] MEDS ORDERED: Lactated Ringers 1000 ml BAG 1,000 ML IV ONE (12:52)
[2020-05-11 13:38] LABS: ABS Lymphocytes 0.9 10^3/ul (1.0-4.8); ABS Monocytes 0.5 10^3/ul (0-0.8); ABS Neutrophils 9.1 10^3/ul (1.5-7.7); Hematocrit 48 % (42-52); Hemoglobin 16.1 g/dL (14.0-18.0); Lymphocyte % 8.3 %; Mean Corpuscular HGB Conc 34 g/dL (31-36); Mean Corpuscular Hemoglobin 30 pg (27-31); Mean Corpuscular Volume 89 fL (80-94); Mean Platelet Volume 7.4 fL (7.4-10.4); Platelet Count 267 10^3/uL (150-450); Red Blood Count 5.37 10^6 /uL (4.18-5.48); Red Cell Distribution Width 15 % (10-15); White Blood Count 10.5 10^3/uL (3.5-10.8)
[2020-05-11 13:54] LABS: Albumin 4.3 g/dL (3.2-5.2); Albumin/Globulin Ratio 1.3 (1-3); BUN/Creatinine Ratio 20.2 (8-20); C Reactive Protein 6.41 mg/L (<8.01); Calcium 9.4 mg/dL (8.6-10.3); EGFR African American 94.3 (>60); EGFR Non-African American 77.9 (>60); Globulin 3.2 g/dL (2-4); Magnesium 2.1 mg/dL (1.9-2.7); Potassium 3.8 mmol/L (3.5-5.0); Total Bilirubin 0.9 mg/dL (0.2-1.0); Total Protein 7.5 g/dL (6.4-8.9)
[2020-05-11] MEDS ORDERED: Iohexol 300 (CONTRAST) 10 ML SDV IV ONE (14:03)
[2020-05-11] MEDS ORDERED: NS 0.9% 1000 ml BAG 1,000 ML IV ONE (14:56)
[2020-05-11] MEDS ORDERED: Morphine 2 MG/ML SYRINGE IV PRN (18:34)
[2020-05-11] MEDS ORDERED: Piperacillin/Tazobac ADVAN 3.375 GM in NS 0.9% 100 ml BAG 100 ML IV ONE (19:16)
[2020-05-11] MEDS ORDERED: Zosyn per Pharmacy NOTE FOLLOW UP SCH ×2 (20:00)
[2020-05-11] MEDS: NS 0.9% 1000 ml BAG 1,000 ML IV SCH (21:19)
[2020-05-11] MEDS: Enoxaparin 40 MG/0.4 ML SYR SUBCUT SCH (21:20)
[2020-05-11] MEDS: ZOSYN 3.375 GM Q8H per EXTENDED INFUSION IV SCH (23:22)
[2020-05-12 03:40] LABS: Urine Appearance Clear; Urine Color Yellow; Urine Specific Gravity 1.035 (1.010-1.030)
[2020-05-12 03:41] LABS: Urine Bilirubin Negative (Negative); Urine Blood Negative (Negative); Urine Glucose Negative (Negative); Urine Ketones Negative (Negative); Urine Nitrite Negative (Negative); Urine Urobilinogen Negative (Negative)
[2020-05-12 03:42] LABS: Urine Protein 1+(30 mg/dL) (Negative)
[2020-05-12 03:53] LABS: Urine Bacteria Absent (Absent); Urine Red Blood Cell 2+(6-10/hpf) (Absent); Urine Squamous Epithelial Cell Present (Absent); Urine White Blood Cell 1+(6-10/hpf) (Absent)
[2020-05-12 05:49] LABS: ABS Lymphocytes 1.3 10^3/ul (1.0-4.8); ABS Monocytes 0.6 10^3/ul (0-0.8); Eosinophil % 0.5 %; Hematocrit 40 % (42-52); Hemoglobin 13.2 g/dL (14.0-18.0); Lymphocyte % 18.8 %; Mean Corpuscular HGB Conc 33 g/dL (31-36); Mean Corpuscular Hemoglobin 30 pg (27-31); Mean Corpuscular Volume 89 fL (80-94); Mean Platelet Volume 7.3 fL (7.4-10.4); Nucleated Red Blood Cells % 0.1; Platelet Count 199 10^3/uL (150-450); Red Blood Count 4.47 10^6 /uL (4.18-5.48); Red Cell Distribution Width 15 % (10-15)
[2020-05-12 06:06] LABS: BUN/Creatinine Ratio 21.4 (8-20); Calcium 8.3 mg/dL (8.6-10.3); EGFR African American 90.1 (>60); EGFR Non-African American 74.4 (>60); Potassium 3.9 mmol/L (3.5-5.0)
[2020-05-12] MEDS: NS 0.9% 1000 ml BAG 1,000 ML IV SCH ×2 (08:06→16:23)
[2020-05-12] MEDS: ZOSYN 3.375 GM Q8H per EXTENDED INFUSION IV SCH (08:07)
[2020-05-12] MEDS: Dexamethasone IV 4 MG/ML VIAL 1 ml VIAL IV SLOW PU SCH (08:08)
[2020-05-12] MEDS: Amoxicillin/Clavul 875/125 TAB (Augmentin 875 tab) PO SCH (09:50)
[2020-05-12] MEDS ORDERED: Bupivacaine 0.25% SDV PF 10 ML VIAL INJ ONE (10:53)
[2020-05-12] MEDS ORDERED: Naloxone 0.4 mg VIAL 0.4 mg/ml 1 ml VIAL IV PRN (12:43)
[2020-05-12] MEDS ORDERED: DiMENhydriNATE IV 50 mg/ml 1 ml VIAL IV PUSH PRN (12:43)
[2020-05-12] MEDS ORDERED: Naloxone 0.4 mg VIAL 0.4 mg/ml 1 ml VIAL IV PUSH PRN (15:36)
[2020-05-12] MEDS ORDERED: HYDROmorphone PCA 20 MG/20 ML PCA.SYRING PCA SCH (15:37)
[2020-05-12] MEDS ORDERED: fentaNYL 100 mcg/2 ml 50 MCG/ML VIAL ONE (16:13)
[2020-05-12] MEDS: fentaNYL 100 mcg/2 ml 50 MCG/ML VIAL IV PRN ×2 (16:14→16:20)
[2020-05-12] MEDS: Enoxaparin 40 MG/0.4 ML SYR SUBCUT SCH (22:30)
[2020-05-12] MEDS ORDERED: Zosyn per Pharmacy NOTE FOLLOW UP SCH (23:00)
[2020-05-12] MEDS ORDERED: ZOSYN 3.375 GM x ONE DOSE over 30 miuntes IV (23:15)
[2020-05-13] MEDS: Amoxicillin/Clavul 875/125 TAB (Augmentin 875 tab) PO SCH (00:02)
[2020-05-13] MEDS: ZOSYN 3.375 GM Q8H per EXTENDED INFUSION IV SCH ×3 (04:53→20:46)
[2020-05-13] MEDS: NS 0.9% 1000 ml BAG 1,000 ML IV SCH ×2 (04:53→18:12)
[2020-05-13 06:18] LABS: ABS Lymphocytes 0.8 10^3/ul (1.0-4.8); ABS Monocytes 0.7 10^3/ul (0-0.8); ABS Neutrophils 7.4 10^3/ul (1.5-7.7); Hematocrit 37 % (42-52); Hemoglobin 12.9 g/dL (14.0-18.0); Lymphocyte % 8.8 %; Mean Corpuscular HGB Conc 35 g/dL (31-36); Mean Corpuscular Hemoglobin 30 pg (27-31); Mean Corpuscular Volume 88 fL (80-94); Mean Platelet Volume 7.6 fL (7.4-10.4); Platelet Count 198 10^3/uL (150-450); Red Blood Count 4.26 10^6 /uL (4.18-5.48); Red Cell Distribution Width 14 % (10-15); White Blood Count 8.9 10^3/uL (3.5-10.8)
[2020-05-13 06:37] LABS: BUN/Creatinine Ratio 17.6 (8-20); EGFR African American 103.9 (>60); EGFR Non-African American 85.9 (>60); Magnesium 1.7 mg/dL (1.9-2.7); Phosphorus 3.2 mg/dL (2.5-5.0); Potassium 3.6 mmol/L (3.5-5.0)
[2020-05-13] MEDS: Dexamethasone IV 4 MG/ML VIAL 1 ml VIAL IV SLOW PU SCH (08:24)
[2020-05-13] MEDS ORDERED: Magnesium Sulfate 2 gm BAG 2 GM/50 ML BAG IVPB ONE (09:06)
[2020-05-13] MEDS ORDERED: Calcium Gluconate 1 GM in NS 0.9% 50 ML 50 ML IV ONE (09:08)
[2020-05-13] MEDS: Enoxaparin 40 MG/0.4 ML SYR SUBCUT SCH (20:46)
[2020-05-14] MEDS: ZOSYN 3.375 GM Q8H per EXTENDED INFUSION IV SCH ×3 (04:39→20:53)
[2020-05-14 05:03] LABS: ABS Monocytes 0.6 10^3/ul (0-0.8); Eosinophil % 0.6 %; Hematocrit 36 % (42-52); Lymphocyte % 15.6 %; Mean Corpuscular HGB Conc 34 g/dL (31-36); Mean Corpuscular Hemoglobin 30 pg (27-31); Mean Corpuscular Volume 89 fL (80-94); Mean Platelet Volume 7.3 fL (7.4-10.4); Platelet Count 166 10^3/uL (150-450); Red Blood Count 3.97 10^6 /uL (4.18-5.48); Red Cell Distribution Width 14 % (10-15); White Blood Count 6.7 10^3/uL (3.5-10.8)
[2020-05-14 05:17] LABS: BUN/Creatinine Ratio 17.9 (8-20); EGFR Non-African American 94.2 (>60); Phosphorus 1.9 mg/dL (2.5-5.0); Potassium 3.6 mmol/L (3.5-5.0)
[2020-05-14] MEDS: NS 0.9% 1000 ml BAG 1,000 ML IV SCH ×2 (07:45→20:56)
[2020-05-14] MEDS: Enoxaparin 40 MG/0.4 ML SYR SUBCUT SCH (20:52)
[2020-05-15] MEDS: ZOSYN 3.375 GM Q8H per EXTENDED INFUSION IV SCH ×3 (05:16→20:07)
[2020-05-15 05:58] LABS: ABS Eosinophils 0.1 10^3/ul (0-0.6); ABS Monocytes 0.4 10^3/ul (0-0.8); Eosinophil % 2.6 %; Hematocrit 35 % (42-52); Hemoglobin 11.7 g/dL (14.0-18.0); Lymphocyte % 17.4 %; Mean Corpuscular HGB Conc 34 g/dL (31-36); Mean Corpuscular Hemoglobin 30 pg (27-31); Mean Corpuscular Volume 89 fL (80-94); Mean Platelet Volume 7.3 fL (7.4-10.4); Platelet Count 172 10^3/uL (150-450); Red Cell Distribution Width 14 % (10-15); White Blood Count 5.5 10^3/uL (3.5-10.8)
[2020-05-15 06:10] LABS: BUN/Creatinine Ratio 18.2 (8-20); EGFR Non-African American 104.1 (>60); Magnesium 1.8 mg/dL (1.9-2.7); Phosphorus 2.4 mg/dL (2.5-5.0); Potassium 3.5 mmol/L (3.5-5.0)
[2020-05-15] MEDS ORDERED: HYDROmorphone 0.5 MG/0.5 ML SYRINGE IV PRN (08:21)
[2020-05-15] MEDS ORDERED: Magnesium Sulfate 2 gm BAG 2 GM/50 ML BAG IVPB ONE (10:00)
[2020-05-15] MEDS: NS 0.9% 1000 ml BAG 1,000 ML IV SCH (10:13)
[2020-05-15] MEDS: HYDROmorphone 0.5 MG/0.5 ML SYRINGE IV PRN ×2 (16:25→20:09)
[2020-05-16] MEDS: NS 0.9% 1000 ml BAG 1,000 ML IV SCH (00:39)
[2020-05-16] MEDS: HYDROmorphone 0.5 MG/0.5 ML SYRINGE IV PRN ×2 (00:44→06:21)
[2020-05-16] MEDS: ZOSYN 3.375 GM Q8H per EXTENDED INFUSION IV SCH ×2 (04:35→12:24)
[2020-05-16] MEDS: Heparin 5000 UNITS/ML 1 mL VIAL SUBCUT SCH ×2 (08:38→14:16)
[2020-05-16] MEDS ORDERED: Iohexol 300 (CONTRAST) 10 ML SDV IV ONE ×2 (09:46→10:42)
[2020-05-16] MEDS ORDERED: oxyCODONE/Acetamin 5/325 mg TAB PO PRN (10:22)
[2020-05-16] MEDS: oxyCODONE/Acetamin 5/325 mg TAB PO PRN ×2 (10:57→14:16)
[2020-05-16 15:59] VITALS: BP 125/67
[2020-06-10 22:04] LABS: RAS/RAF Tissue ID S20-11800-3I
== END 2020-05-16 16:30 | disposition home or self-care (01) ==
LOC: MED 12:18 → ED 12:18 → SSU 05-12 16:54
PROVIDERS: ADMIT Internal Medicine; ATTEND Internal Medicine

== ENCOUNTER 2021-04-24 04:01 | Inpatient (IN) ==
[2021-04-24 06:33] LABS: INR 1.15 (0.86-1.15)
[2021-04-24 06:56] LABS: Troponin I 0.02 ng/mL (<0.03)
[2021-04-24 07:00] LABS: Albumin 4.4 g/dL (3.2-5.2); Albumin/Globulin Ratio 1.3 (1-3); Alkaline Phosphatase 68 U/L (35-149); Blood Urea Nitrogen 14 mg/dL (6-24); CO2 Carbon Dioxide 24 mmol/L (22-32); Calcium 9.3 mg/dL (8.6-10.3); Chloride 104 mmol/L (101-111); Globulin 3.5 g/dL (2-4); Glucose 92 mg/dL (70-100); Sodium 138 mmol/L (135-145); Total Protein 7.9 g/dL (6.4-8.9)
[2021-04-24 07:20] LABS: Anion Gap 10 mmol/L (2-11)
[2021-04-24 07:48] LABS: ALT 19 U/L (7-52)
[2021-04-24] MEDS ORDERED: Iohexol 300 (CONTRAST) 10 ML SDV IV ONE (08:08)
[2021-04-24 08:27] LABS: ABS Lymphocytes 0.8 10^3/ul (1.0-4.8); ABS Monocytes 0.5 10^3/ul (0-0.8); ABS Neutrophils 4.5 10^3/ul (1.5-7.7); Eosinophil % 0.4 %; Hematocrit 46 % (42-52); Hemoglobin 15.8 g/dL (14.0-18.0); Lymphocyte % 13.1 %; Mean Corpuscular HGB Conc 34 g/dL (31-36); Mean Corpuscular Hemoglobin 35 pg (27-31); Mean Corpuscular Volume 101 fL (80-94); Mean Platelet Volume 7.7 fL (7.4-10.4); Platelet Count 168 10^3/uL (150-450); Red Blood Count 4.55 10^6 /uL (4.18-5.48); Red Cell Distribution Width 17 % (10-15); White Blood Count 5.8 10^3/uL (3.5-10.8)
[2021-04-24] MEDS ORDERED: Morphine 4 MG/ML VIAL (1 ml) IV ONE (10:18)
[2021-04-24] MEDS ORDERED: Ondansetron 4 mg VIAL 2 MG/ML 2 ml VIAL IV ONE (10:18)
[2021-04-24 11:07] LABS: Urine Appearance Clear; Urine Bilirubin Negative (Negative); Urine Blood Negative (Negative); Urine Color Straw; Urine Glucose Negative (Negative); Urine Ketones Negative (Negative); Urine Nitrite Negative (Negative); Urine Protein Negative (Negative); Urine Specific Gravity 1.049 (1.002-1.030); Urine Urobilinogen Negative (Negative)
[2021-04-24] MEDS ORDERED: Ondansetron 4 mg VIAL 2 MG/ML 2 ml VIAL IV PRN (11:44)
[2021-04-24] MEDS ORDERED: Morphine 2 MG/ML SYRINGE IV PRN ×3 (11:48→12:06)
[2021-04-24 12:35] LABS: Rapid COVID-19 Molecular Undetected (Undetected)
[2021-04-24] MEDS: NS 0.9% 1000 ml BAG 1,000 ML IV SCH (14:16)
[2021-04-25] MEDS: NS 0.9% 1000 ml BAG 1,000 ML IV SCH (00:51)
[2021-04-25] MEDS ORDERED: Acetaminophen IV 1 GM/100ML 100 ML IV PRN (02:37)
[2021-04-25 06:30] LABS: ABS Eosinophils 0.1 10^3/ul (0-0.6); ABS Lymphocytes 1.1 10^3/ul (1.0-4.8); ABS Monocytes 0.4 10^3/ul (0-0.8); ABS Neutrophils 2.4 10^3/ul (1.5-7.7); Eosinophil % 1.7 %; Hematocrit 42 % (42-52); Hemoglobin 14.5 g/dL (14.0-18.0); Lymphocyte % 27.1 %; Mean Corpuscular HGB Conc 35 g/dL (31-36); Mean Corpuscular Hemoglobin 35 pg (27-31); Mean Corpuscular Volume 101 fL (80-94); Mean Platelet Volume 7.6 fL (7.4-10.4); Nucleated Red Blood Cells % 0.1; Platelet Count 165 10^3/uL (150-450); Red Blood Count 4.17 10^6 /uL (4.18-5.48); Red Cell Distribution Width 17 % (10-15); White Blood Count 3.9 10^3/uL (3.5-10.8)
[2021-04-25 06:39] LABS: Albumin 3.9 g/dL (3.2-5.2); Albumin/Globulin Ratio 1.3 (1-3); Calcium 8.8 mg/dL (8.6-10.3); Globulin 2.9 g/dL (2-4); Potassium 3.8 mmol/L (3.5-5.0); Total Bilirubin 0.8 mg/dL (0.2-1.0); Total Protein 6.8 g/dL (6.4-8.9)
[2021-04-25 12:07] VITALS: BP 144/89
== END 2021-04-25 15:00 | disposition home or self-care (01) | DRG 389 ==
LOC: ED 04:01 → SSU 13:36 → SUATTDRO 13:45
PROVIDERS: ADMIT Internal Medicine; ATTEND Internal Medicine Hematology & Oncology

== ENCOUNTER 2021-07-10 20:39 | Inpatient (IN) ==
[2021-07-10] MEDS ORDERED: Morphine 4 MG/ML VIAL (1 ml) IV ONE (21:48)
[2021-07-10] MEDS ORDERED: Droperidol 5 MG/2 ML 2 ML VIAL IV ONE (21:48)
[2021-07-10 22:10] LABS: ABS Eosinophils 0.1 10^3/ul (0-0.6); ABS Lymphocytes 1.1 10^3/ul (1.0-4.8); ABS Monocytes 0.8 10^3/ul (0-0.8); ABS Neutrophils 5.5 10^3/ul (1.5-7.7); Hematocrit 46 % (42-52); Hemoglobin 15.9 g/dL (14.0-18.0); Lymphocyte % 14.6 %; Mean Corpuscular HGB Conc 35 g/dL (31-36); Mean Corpuscular Hemoglobin 34 pg (27-31); Mean Corpuscular Volume 99 fL (80-94); Mean Platelet Volume 7.6 fL (7.4-10.4); Nucleated Red Blood Cells % 0.1; Platelet Count 182 10^3/uL (150-450); Red Blood Count 4.66 10^6 /uL (4.18-5.48); Red Cell Distribution Width 16 % (10-15); White Blood Count 7.4 10^3/uL (3.5-10.8)
[2021-07-10 22:28] LABS: Albumin 4.3 g/dL (3.2-5.2); Albumin/Globulin Ratio 1.3 (1-3); C Reactive Protein 1.69 mg/L (<8.01); Calcium 9.1 mg/dL (8.6-10.3); Globulin 3.2 g/dL (2-4); Potassium 3.8 mmol/L (3.5-5.0); Total Bilirubin 0.6 mg/dL (0.2-1.0); Total Protein 7.5 g/dL (6.4-8.9)
[2021-07-10] MEDS ORDERED: Iohexol 300 (CONTRAST) 10 ML SDV IV ONE (23:39)
[2021-07-10 23:48] LABS: Urine Appearance Clear; Urine Color Yellow; Urine Ketones Negative (Negative); Urine Urobilinogen Negative (Negative)
[2021-07-10] MEDS: Morphine 4 MG/ML VIAL (1 ml) IV PRN (23:48)
[2021-07-10 23:49] LABS: Urine Bilirubin Negative (Negative); Urine Blood Negative (Negative); Urine Nitrite Negative (Negative); Urine Protein 1+(30 mg/dL) (Negative)
[2021-07-10 23:50] LABS: Urine Glucose Negative (Negative)
[2021-07-10 23:59] LABS: Urine Red Blood Cell Absent (Absent); Urine White Blood Cell Trace(0-5/hpf) (Absent)
[2021-07-11] LABS: Urine Bacteria Absent (Absent); Urine Squamous Epithelial Cell Present (Absent)
[2021-07-11] MEDS ORDERED: Droperidol 5 MG/2 ML 2 ML VIAL IV ONE (02:18)
[2021-07-11] MEDS: Morphine 4 MG/ML VIAL (1 ml) IV PRN (02:35)
[2021-07-11 02:57] LABS: Rapid COVID-19 Molecular Undetected (Undetected)
[2021-07-11] MEDS ORDERED: Lactated Ringers 1000 ml BAG 1,000 ML IV SCH (04:00)
[2021-07-11] MEDS ORDERED: Enoxaparin 40 MG/0.4 ML SYR SUBCUT SCH (04:00)
[2021-07-11] MEDS: Ondansetron 4 mg VIAL 2 MG/ML 2 ml VIAL IV PRN ×2 (07:52→20:55)
[2021-07-11] MEDS ORDERED: Diatrizoate Meg/Sod(CONTRAST) 30 ML ORAL.SOLN PO ONE (14:47)
[2021-07-11] MEDS: Lactated Ringers 1000 ml BAG 1,000 ML IV SCH (17:33)
[2021-07-11] MEDS: Famotidine IV 10 MG/ML 2 ml VIAL (20 mg) IV SLOW PU SCH (20:49)
[2021-07-12] MEDS: Lactated Ringers 1000 ml BAG 1,000 ML IV SCH ×2 (01:46→16:27)
[2021-07-12] MEDS: Famotidine IV 10 MG/ML 2 ml VIAL (20 mg) IV SLOW PU SCH ×2 (08:27→21:34)
[2021-07-12] MEDS ORDERED: fentaNYL 100 mcg/2 ml 50 MCG/ML VIAL IV PRN (09:17)
[2021-07-12] MEDS ORDERED: Ondansetron 4 mg VIAL 2 MG/ML 2 ml VIAL IV PRN (09:17)
[2021-07-12] MEDS ORDERED: Naloxone 0.4 mg VIAL 0.4 mg/ml 1 ml VIAL IV PRN (09:17)
[2021-07-12 09:19] LABS: ABS Eosinophils 0.1 10^3/ul (0-0.6); ABS Lymphocytes 0.7 10^3/ul (1.0-4.8); ABS Monocytes 0.5 10^3/ul (0-0.8); ABS Neutrophils 1.8 10^3/ul (1.5-7.7); Eosinophil % 2.7 %; Hematocrit 41 % (42-52); Hemoglobin 13.9 g/dL (14.0-18.0); Lymphocyte % 22.8 %; Mean Corpuscular HGB Conc 34 g/dL (31-36); Mean Corpuscular Hemoglobin 33 pg (27-31); Mean Corpuscular Volume 98 fL (80-94); Mean Platelet Volume 7.6 fL (7.4-10.4); Nucleated Red Blood Cells % 0.2; Platelet Count 145 10^3/uL (150-450); Red Cell Distribution Width 16 % (10-15); White Blood Count 3.1 10^3/uL (3.5-10.8)
[2021-07-12 09:24] LABS: INR 1.22 (0.86-1.15)
[2021-07-12] MEDS ORDERED: Ondansetron 4 mg VIAL 2 MG/ML 2 ml VIAL ONE (09:24)
[2021-07-12] MEDS ORDERED: Propofol 10 MG/ML 20 ML BTL ONE (09:24)
[2021-07-12] MEDS ORDERED: Rocuronium 50 mg VIAL 10 mg/ml 5 ml VIAL (50 mg) ONE (09:24)
[2021-07-12] MEDS ORDERED: Dexamethasone IV 4 MG/ML VIAL 1 ml VIAL ONE (09:24)
[2021-07-12] MEDS ORDERED: Succinylcholine 200 mg VIAL 20 mg/ml 10 ml VIAL (200 mg) ONE (09:24)
[2021-07-12] MEDS ORDERED: fentaNYL 250 mcg/5 ml 50 MCG/ML 5 ml VIAL (250 MCG) ONE (09:25)
[2021-07-12] MEDS ORDERED: Midazolam 2 mg/2 ml VIAL 1 mg/ml 2 ml VIAL (2 mg) ONE (09:25)
[2021-07-12 09:35] LABS: Calcium 8.5 mg/dL (8.6-10.3); Magnesium 1.9 mg/dL (1.9-2.7); Potassium 3.9 mmol/L (3.5-5.0); eGFR CKD-EPI 99.3 (>60)
[2021-07-12] MEDS ORDERED: Bupivacaine 0.5% SDV PF 30ML VIAL ONE (09:40)
[2021-07-12] MEDS ORDERED: Lidocaine 1% w EPI 1:200,000 SDV 30 ML VIAL ONE (09:40)
[2021-07-12] MEDS ORDERED: ceFAZolin 2 GM PREMIX 2 GM/50 ML BAG ONE (09:49)
[2021-07-12] MEDS ORDERED: HYDROmorphone 0.5 MG/0.5 ML SYRINGE ONE ×3 (10:50→11:59)
[2021-07-12] MEDS ORDERED: fentaNYL 100 mcg/2 ml 50 MCG/ML VIAL ONE (12:43)
[2021-07-12] MEDS ORDERED: HYDROmorphone 1 MG/1 ML SYRINGE ONE (13:58)
[2021-07-12] MEDS: HYDROmorphone 1 MG/1 ML SYRINGE IV PRN ×5 (13:59→14:20)
[2021-07-12] MEDS: Ondansetron 4 mg VIAL 2 MG/ML 2 ml VIAL IV PRN (15:46)
[2021-07-12] MEDS ORDERED: Morphine PCA 5 MG/ML Titrate per Protocol PCA SCH (16:00)
[2021-07-13] MEDS: Lactated Ringers 1000 ml BAG 1,000 ML IV SCH ×3 (00:30→15:15)
[2021-07-13] MEDS: Heparin 5000 UNITS/ML 1 mL VIAL SUBCUT SCH ×3 (06:02→21:41)
[2021-07-13 06:30] LABS: ABS Lymphocytes 0.7 10^3/ul (1.0-4.8); ABS Neutrophils 6.2 10^3/ul (1.5-7.7); Hematocrit 41 % (42-52); Hemoglobin 14.1 g/dL (14.0-18.0); Lymphocyte % 9.1 %; Mean Corpuscular HGB Conc 34 g/dL (31-36); Mean Corpuscular Hemoglobin 33 pg (27-31); Mean Corpuscular Volume 97 fL (80-94); Mean Platelet Volume 7.9 fL (7.4-10.4); Platelet Count 174 10^3/uL (150-450); Red Blood Count 4.24 10^6 /uL (4.18-5.48); Red Cell Distribution Width 16 % (10-15); White Blood Count 7.9 10^3/uL (3.5-10.8)
[2021-07-13 06:39] LABS: INR 1.27 (0.86-1.15)
[2021-07-13 06:56] LABS: C Reactive Protein 34.69 mg/L (<8.01); Calcium 8.8 mg/dL (8.6-10.3); Magnesium 1.7 mg/dL (1.9-2.7); Phosphorus 2.9 mg/dL (2.5-5.0); Potassium 3.8 mmol/L (3.5-5.0)
[2021-07-13] MEDS ORDERED: Magnesium Sulfate IV 3 GM in NS 0.9% 100 ml BAG 100 ML IVPB ONE (07:30)
[2021-07-13] MEDS: Famotidine IV 10 MG/ML 2 ml VIAL (20 mg) IV SLOW PU SCH ×2 (09:43→21:38)
[2021-07-13] MEDS: oxyCODONE/Acetamin 5/325 mg TAB PO PRN ×2 (12:41→16:38)
[2021-07-13] MEDS: Ondansetron 4 mg VIAL 2 MG/ML 2 ml VIAL IV PRN (21:39)
[2021-07-14] MEDS: Lactated Ringers 1000 ml BAG 1,000 ML IV SCH ×2 (00:16→10:27)
[2021-07-14] MEDS: Ondansetron 4 mg VIAL 2 MG/ML 2 ml VIAL IV PRN ×3 (03:50→13:26)
[2021-07-14] MEDS: Heparin 5000 UNITS/ML 1 mL VIAL SUBCUT SCH ×3 (05:58→21:14)
[2021-07-14 06:52] LABS: ABS Lymphocytes 0.4 10^3/ul (1.0-4.8); ABS Monocytes 0.7 10^3/ul (0-0.8); ABS Neutrophils 5.2 10^3/ul (1.5-7.7); Eosinophil % 0.1 %; Hematocrit 42 % (42-52); Hemoglobin 14.6 g/dL (14.0-18.0); Lymphocyte % 6.7 %; Mean Corpuscular HGB Conc 35 g/dL (31-36); Mean Corpuscular Hemoglobin 34 pg (27-31); Mean Corpuscular Volume 98 fL (80-94); Platelet Count 153 10^3/uL (150-450); Red Blood Count 4.31 10^6 /uL (4.18-5.48); Red Cell Distribution Width 15 % (10-15); White Blood Count 6.3 10^3/uL (3.5-10.8)
[2021-07-14 07:08] LABS: Albumin 3.8 g/dL (3.2-5.2); Albumin/Globulin Ratio 1.2 (1-3); Calcium 8.7 mg/dL (8.6-10.3); Globulin 3.2 g/dL (2-4); Potassium 3.9 mmol/L (3.5-5.0); Total Bilirubin 1.1 mg/dL (0.2-1.0); eGFR CKD-EPI 105.9 (>60)
[2021-07-14] MEDS: Famotidine IV 10 MG/ML 2 ml VIAL (20 mg) IV SLOW PU SCH ×2 (10:27→21:15)
[2021-07-14] MEDS ORDERED: Metoclopramide 5 MG/ML VIAL (10 mg) ONE (10:32)
[2021-07-14] MEDS: Metoclopramide 5 MG/ML VIAL (10 mg) IV SLOW PU PRN ×2 (10:33→16:12)
[2021-07-14] MEDS: D5W 1/2 NS 1000 ml BAG 1,000 ML IV SCH (16:11)
[2021-07-15] MEDS: D5W 1/2 NS 1000 ml BAG 1,000 ML IV SCH ×3 (05:33→21:29)
[2021-07-15] MEDS: Heparin 5000 UNITS/ML 1 mL VIAL SUBCUT SCH ×3 (05:34→21:29)
[2021-07-15 06:02] LABS: ABS Lymphocytes 0.6 10^3/ul (1.0-4.8); ABS Monocytes 0.8 10^3/ul (0-0.8); ABS Neutrophils 2.8 10^3/ul (1.5-7.7); Eosinophil % 0.2 %; Hematocrit 43 % (42-52); Hemoglobin 15.2 g/dL (14.0-18.0); Lymphocyte % 13.4 %; Mean Corpuscular HGB Conc 35 g/dL (31-36); Mean Corpuscular Hemoglobin 34 pg (27-31); Mean Corpuscular Volume 96 fL (80-94); Mean Platelet Volume 7.7 fL (7.4-10.4); Nucleated Red Blood Cells % 0.1; Platelet Count 185 10^3/uL (150-450); Red Blood Count 4.46 10^6 /uL (4.18-5.48); Red Cell Distribution Width 15 % (10-15); White Blood Count 4.1 10^3/uL (3.5-10.8)
[2021-07-15 06:22] LABS: Calcium 8.6 mg/dL (8.6-10.3); Potassium 3.5 mmol/L (3.5-5.0); eGFR CKD-EPI 107.3 (>60)
[2021-07-15] MEDS: Famotidine IV 10 MG/ML 2 ml VIAL (20 mg) IV SLOW PU SCH ×2 (07:43→21:29)
[2021-07-15] MEDS: hydrALAZINE 20 mg/ml 1 ML Vial IV IV SLOW PU PRN (07:43)
[2021-07-16] MEDS: D5W 1/2 NS 1000 ml BAG 1,000 ML IV SCH ×2 (04:25→15:02)
[2021-07-16 05:15] LABS: ABS Lymphocytes 0.9 10^3/ul (1.0-4.8); ABS Monocytes 0.8 10^3/ul (0-0.8); ABS Neutrophils 2.1 10^3/ul (1.5-7.7); Eosinophil % 0.8 %; Hematocrit 41 % (42-52); Hemoglobin 13.9 g/dL (14.0-18.0); Lymphocyte % 22.9 %; Mean Corpuscular HGB Conc 34 g/dL (31-36); Mean Corpuscular Hemoglobin 33 pg (27-31); Mean Corpuscular Volume 97 fL (80-94); Mean Platelet Volume 7.3 fL (7.4-10.4); Platelet Count 206 10^3/uL (150-450); Red Blood Count 4.16 10^6 /uL (4.18-5.48); Red Cell Distribution Width 15 % (10-15); White Blood Count 3.9 10^3/uL (3.5-10.8)
[2021-07-16 05:28] LABS: Albumin 3.4 g/dL (3.2-5.2); Albumin/Globulin Ratio 1.2 (1-3); Calcium 8.4 mg/dL (8.6-10.3); Globulin 2.9 g/dL (2-4); Magnesium 1.9 mg/dL (1.9-2.7); Potassium 3.6 mmol/L (3.5-5.0); Total Bilirubin 0.7 mg/dL (0.2-1.0); Total Protein 6.3 g/dL (6.4-8.9); eGFR CKD-EPI 104.2 (>60)
[2021-07-16] MEDS: Heparin 5000 UNITS/ML 1 mL VIAL SUBCUT SCH ×3 (05:51→21:34)
[2021-07-16] MEDS: Famotidine IV 10 MG/ML 2 ml VIAL (20 mg) IV SLOW PU SCH ×2 (07:56→21:34)
[2021-07-16] MEDS: Acetaminophen IV 1 GM/100ML 100 ML IV PRN ×2 (13:37→21:34)
[2021-07-17] MEDS: Heparin 5000 UNITS/ML 1 mL VIAL SUBCUT SCH ×3 (06:36→21:33)
[2021-07-17] MEDS: Famotidine IV 10 MG/ML 2 ml VIAL (20 mg) IV SLOW PU SCH ×2 (07:44→21:34)
[2021-07-17] MEDS: D5W 1/2 NS 1000 ml BAG 1,000 ML IV SCH ×2 (07:44→15:53)
[2021-07-17] MEDS ORDERED: Lorazepam PYXIS KEY ONE (08:00)
[2021-07-17] MEDS: hydrALAZINE 20 mg/ml 1 ML Vial IV IV SLOW PU PRN (08:06)
[2021-07-17] MEDS: Acetaminophen IV 1 GM/100ML 100 ML IV PRN ×2 (12:01→23:05)
[2021-07-18] MEDS: D5W 1/2 NS 1000 ml BAG 1,000 ML IV SCH ×2 (04:01→17:46)
[2021-07-18] MEDS: Heparin 5000 UNITS/ML 1 mL VIAL SUBCUT SCH ×3 (05:50→21:56)
[2021-07-18] MEDS: Famotidine IV 10 MG/ML 2 ml VIAL (20 mg) IV SLOW PU SCH ×2 (08:10→21:56)
[2021-07-18 09:50] LABS: ABS Eosinophils 0.1 10^3/ul (0-0.6); ABS Lymphocytes 0.9 10^3/ul (1.0-4.8); ABS Monocytes 0.7 10^3/ul (0-0.8); ABS Neutrophils 3.6 10^3/ul (1.5-7.7); Eosinophil % 2.5 %; Hematocrit 40 % (42-52); Hemoglobin 13.9 g/dL (14.0-18.0); Lymphocyte % 16.8 %; Mean Corpuscular HGB Conc 35 g/dL (31-36); Mean Corpuscular Hemoglobin 33 pg (27-31); Mean Corpuscular Volume 96 fL (80-94); Mean Platelet Volume 7.1 fL (7.4-10.4); Nucleated Red Blood Cells % 0.1; Platelet Count 214 10^3/uL (150-450); Red Blood Count 4.18 10^6 /uL (4.18-5.48); Red Cell Distribution Width 15 % (10-15); White Blood Count 5.4 10^3/uL (3.5-10.8)
[2021-07-18 10:22] LABS: Albumin 3.4 g/dL (3.2-5.2); Albumin/Globulin Ratio 1.2 (1-3); Calcium 8.5 mg/dL (8.6-10.3); Globulin 2.9 g/dL (2-4); Potassium 3.3 mmol/L (3.5-5.0); Total Bilirubin 0.6 mg/dL (0.2-1.0); Total Protein 6.3 g/dL (6.4-8.9); eGFR CKD-EPI 104.2 (>60)
[2021-07-18] MEDS ORDERED: Potassium Chlor 20 meq TAB.ER PO ONE (20:03)
[2021-07-18] MEDS: Acetaminophen IV 1 GM/100ML 100 ML IV PRN (22:15)
[2021-07-19] MEDS: Heparin 5000 UNITS/ML 1 mL VIAL SUBCUT SCH (06:28)
[2021-07-19] MEDS: Famotidine IV 10 MG/ML 2 ml VIAL (20 mg) IV SLOW PU SCH (08:38)
[2021-07-19 11:34] VITALS: BP 160/98
== END 2021-07-19 13:30 | disposition home or self-care (01) | DRG 330 ==
LOC: EDHOLD 20:39 → ED 20:39 → SUATTDRO 07-11 03:05 → SSU 07-11 05:33 → SUATTDRO 07-12 10:00
PROVIDERS: ADMIT Hospitalist; ATTEND Internal Medicine